=== PATIENT | female | born 1955 ===

== ENCOUNTER 2022-01-20 07:06 | Day surgery (SDC) | payer OTHER | END 2022-01-20 15:55 | disposition home or self-care (01) | LOC: AMB-ENDOS 07:06 → CIR.AMB 12:30 → AMB-ENDOS 15:55 | PROVIDERS: ATTEND Colon & Rectal Surgery | DX: D12.3 Benign neoplasm of transverse colon (principal); Z86.010 Personal history of colon polyps; K64.4 Residual hemorrhoidal skin tags; E78.5 Hyperlipidemia, unspecified; E03.9 Hypothyroidism, unspecified; I10 Essential (primary) hypertension; Z20.822 Contact with and (suspected) exposure to COVID-19 ==